=== PATIENT | male | born 1985 | race Caucasian/White ===

== ENCOUNTER 2019-10-11 07:49 | Emergency (ER) | payer OTHER ==
--- NOTE | 2019-10-11 08:05 | EDM.PDOC ---
ED HPI GENERAL MEDICAL PROBLEM - General Chief Complaint: Genitourinary Problem Stated Complaint: SPOKE WITH NURSE Time Seen by Provider: 10/11/19 07:55 Source of Information: Reports: Patient History Limitations: Reports: No Limitations - History of Present Illness Onset: Gradual (yesterday at around 8:00AM with pain in the bottom of his right testicle followed by swelling of the right testicle over the past 8-9 hours.) Duration: Getting Worse Location: Reports: Other (right testicle with pain into the right flank area.) Quality: Reports: Dull, Sharp, Throbbing Severity: Moderate Improves with: Reports: None Worsens with: Reports: None Associated Symptoms: Reports: Other (complains of a white color discharge with the start of his urine flow. He states that the discharge looks like "semen".) right testicle Pain Score (Numeric/FACES): 7 - Related Data Allergies Allergy/AdvReac Type Severity Reaction Status Date / Time tree nut Allergy Severe Airway Verified 10/11/19 08:06 Tightness Home Meds: Home Meds Ibuprofen [Motrin] 800 mg PO BIDMEALS PRN 10 Days #20 tablet 10/11/19 [Rx] Levofloxacin [Levaquin] 500 mg PO DAILY #10 tablet 10/11/19 [Rx] Pantoprazole [ProTONIX] 40 mg PO DAILY 10/11/19 [History] ED ROS GENERAL - Review of Systems Review Of Systems: See Below Constitutional: Reports: No Symptoms HEENT: Reports: No Symptoms Respiratory: Reports: No Symptoms Cardiovascular: Reports: No Symptoms Endocrine: Reports: No Symptoms GI/Abdominal: Reports: No Symptoms : Reports: Discharge (as noted above.), Dysuria, Pain (in right testicle with swelling of same.) Musculoskeletal: Reports: No Symptoms Skin: Reports: No Symptoms Neurological: Reports: No Symptoms ED EXAM, RENAL/ - Physical Exam Exam: See Below Text/Narrative:: This 34 year old male who is very active physically (workout) complains of gradual onset of pain in the bottom of his right testicle that started about 24 hours ago that progressed to a swollen right testicle with increasing pain over the past 10 hours that radiates into his right flank. He complains of semen type discharge from penis when starting his urine stream. He has one active sexual partner and that his last sexual contact was 3 weeks ago. He states that he had a similar problem two to three years ago and was placed he thinks on antibiotics after having a scrotal ultrasound. Exam Limited By: No Limitations General Appearance: Alert, WD/WN, No Apparent Distress Eye Exam: Bilateral Eye: EOMI, Normal Inspection, PERRL Ears: Normal External Exam, Normal Canal, Hearing Grossly Normal, Normal TMs Nose: Normal Inspection, Normal Mucosa, No Blood Throat/Mouth: Normal Inspection, Normal Lips, Normal Teeth, Normal Gums, Normal Oropharynx, Normal Voice, No Airway Compromise Head: Atraumatic, Normocephalic Neck: Normal Inspection, Supple, Non-Tender, Full Range of Motion Respiratory/Chest: No Respiratory Distress, Lungs Clear, Normal Breath Sounds, No Accessory Muscle Use, Chest Non-Tender Cardiovascular: Normal Peripheral Pulses, Regular Rate, Rhythm, No Edema, No Gallop, No JVD, No Murmur, No Rub GI/Abdominal: Normal Bowel Sounds, Soft, Non-Tender, No Organomegaly, No Distention, No Abnormal Bruit, No Mass (Male) Exam: No Hernia, Circumcised, Scrotal Swelling (right testicle especially in the epididymus which is very tender to the touch or with right testicular movement.), Scrotum Tenderness (R) (as noted above), Other (No CVA tenderness.) Rectal (Males) Exam: Deferred Back Exam: Normal Inspection, Full Range of Motion, NT Extremities: Normal Inspection, Normal Range of Motion, Non-Tender, Normal Capillary Refill, No Pedal Edema Neurological: Alert, Oriented, CN II-XII Intact, Normal Cognition, Normal Gait, Normal Reflexes, No Motor/Sensory Deficits Skin Exam: Warm, Dry, Intact, Normal Color, No Rash Lymphatic: No Adenopathy Course - Vital Signs Text/Narrative:: After review of all of the patient diagnostic test including his scrotal ultrasound and his UA, I feel that he has acute epididymitis. He will be placed on Levaquin, scrotal support and warm compress to his scrotal area. The patient agrees with the discharge plan. Last Recorded V/S: Last Vital Signs Temp 95.4 F 10/11/19 08:03 Pulse 109 H 10/11/19 08:03 Resp 18 10/11/19 08:03 BP 140/115 H 10/11/19 08:03 Pulse Ox 95 10/11/19 08:03 - Orders/Labs/Meds Orders: Active Orders 24 hr Category Date Time Status Scrotal Duplex Ltd [US] Stat Exams 10/11/19 Taken CHLAMYDIA AND GONORRHEA BY [facility] Stat Lab 10/11/19 08:00 Received Scrotal Support [OM.PC] Stat Oth 10/11/19 09:31 Ordered Labs: Laboratory Tests 10/11/19 10/11/19 Range/Units 08:00 08:28 WBC 11.56 H (4.0-11.0) K/uL RBC 5.06 (4.50-5.90) M/uL Hgb 15.7 (13.0-17.0) g/dL Hct 45.7 (38.0-50.0) % MCV 90.3 (80.0-98.0) fL MCH 31.0 (27.0-32.0) pg MCHC 34.4 (31.0-37.0) g/dL RDW Std Deviation 43.1 (28.0-62.0) fl RDW Coeff of Elizabeth 13 (11.0-15.0) % Plt Count 238 (150-400) K/uL MPV 10.20 (7.40-12.00) fL Neut % (Auto) 73.2 (48.0-80.0) % Lymph % (Auto) 15.2 L (16.0-40.0) % [place] % (Auto) 8.1 (0.0-15.0) % Eos % (Auto) 3.2 (0.0-7.0) % Baso % (Auto) 0.3 (0.0-1.5) % Neut # (Auto) 8.5 H (1.4-5.7) K/uL Lymph # (Auto) 1.8 (0.6-2.4) K/uL [place] # (Auto) 0.9 H (0.0-0.8) K/uL Eos # (Auto) 0.4 (0.0-0.7) K/uL Baso # (Auto) 0.0 (0.0-0.1) K/uL Nucleated RBC % 0.0 /100WBC Nucleated RBCs # 0 K/uL Urine Color YELLOW Urine Appearance CLOUDY Urine pH 6.5 (5.0-8.0) Ur Specific Humphreys 1.015 (1.001-1.035) Urine Protein 30 H (NEGATIVE) mg/dL Urine Glucose (UA) NEGATIVE (NEGATIVE) mg/dL Urine Ketones NEGATIVE (NEGATIVE) mg/dL Urine Occult Blood MODERATE H (NEGATIVE) Urine Nitrite NEGATIVE (NEGATIVE) Urine Bilirubin SMALL H (NEGATIVE) Urine Ictotest NEGATIVE Urine Urobilinogen 0.2 (<2.0) EU/dL Ur Leukocyte Esterase LARGE H (NEGATIVE) Urine RBC 3-6 (0-2/HPF) Urine WBC 70-80 (0-5/HPF) Ur Epithelial Cells FEW (NONE-FEW) Urine Bacteria 1+ H (NEGATIVE) Meds: Medications Discontinued Medications Generic Name Dose Route Start Last Admin Trade Name Hailey PRN Reason Stop Dose Admin Ibuprofen 800 mg 10/11/19 08:18 10/11/19 08:53 Motrin PO 10/11/19 08:19 800 mg ONETIME ONE Administration Levofloxacin 500 mg 10/11/19 09:31 Levaquin PO 10/11/19 09:32 ONETIME ONE Departure - Departure Time of Disposition: 09:53 Disposition: Home, Self-Care 01 Clinical Impression: Epididymitis - Discharge Information *PRESCRIPTION DRUG MONITORING PROGRAM REVIEWED*: Yes *COPY OF PRESCRIPTION DRUG MONITORING REPORT IN PATIENT LILIAN: Yes Forms: ED Department Discharge Additional Instructions: Take all medications as directed. Follow up with the urologist the nurse has given you in the next two to three days. Drink plenty of clear liquids for the next 24-48 hours. Warm compress to the scrotal area for the next two days (30 minutes on and one hour off while awake). Wear scrotal support for the next four to five days for comfort. Rest for the next 24 hours. Return to the ED if your condition gets worse or should you have any questions or concerns. The following information is given to patients seen in the emergency department who are being discharged to home. This information is to outline your options for follow-up care. We provide all patients seen in our emergency department with a follow-up referral. The need for follow-up, as well as the timing and circumstances, are variable depending upon the specifics of your emergency department visit. If you don't have a primary care physician on staff, we will provide you with a referral. We always advise you to contact your personal physician following an emergency department visit to inform them of the circumstance of the visit and for follow-up with them and/or the need for any referrals to a consulting specialist. The emergency department will also refer you to a specialist when appropriate. This referral assures that you have the opportunity for follow-up care with a specialist. All of these measure are taken in an effort to provide you with optimal care, which includes your follow-up. Under all circumstances we always encourage you to contact your private physician who remains a resource for coordinating your care. When calling for follow-up care, please make the office aware that this follow-up is from your recent emergency room visit. If for any reason you are refused follow-up, please contact the [facility] Emergency Department at and asked to speak to the emergency department charge nurse. Sepsis Event Note - Focused Exam Vital Signs: Vital Signs Temp Pulse Resp BP Pulse Ox 10/11/19 08:03 95.4 F 109 H 18 140/115 H 95 Date Exam was Performed: 10/11/19 Time Exam was Performed: 09:51 - My Orders Last 24 Hours: My Active Orders 10/11/19 Scrotal Duplex Ltd [US] Stat 10/11/19 08:00 CHLAMYDIA AND GONORRHEA BY [facility] Stat 10/11/19 09:31 Scrotal Support [OM.PC] Stat - Assessment/Plan Last 24 Hours: My Active Orders 10/11/19 Scrotal Duplex Ltd [US] Stat 10/11/19 08:00 CHLAMYDIA AND GONORRHEA BY [facility] Stat 10/11/19 09:31 Scrotal Support [OM.PC] Stat
[2019-10-11] MEDS ORDERED: Ibuprofen 800 MG Tab PO ONE (08:18)
--- NOTE | 2019-10-11 09:05 | US ---
Testicular ultrasound: Multiple real-time images of the testicles were obtained. Comparison: No previous testicular imaging is available. Findings: Right scrotal wall appears thickened. Both testicles have a homogeneous ultrasound appearance. No intratesticular abnormality is appreciated. Both venous and arterial blood flow are seen within the testicles. No hydrocele is seen. No epididymal cyst is identified. No varicocele is identified. Measurements: Right testicle: 4.2 x 2.6 x 3.3 cm Left testicle: 4.7 x 2.1 x 2.9 cm Impression: 1. Scrotal wall thickening on the right side. 2. No intratesticular abnormality is seen as described above. Diagnostic code #2 This report was dictated in [place] Standard Time
[2019-10-11] MEDS ORDERED: Levofloxacin 500 MG Tab PO ONE (09:31)
--- NOTE | 2019-10-11 12:52 | US ---
EXAM DATE: 10/11/19 PATIENT'S AGE: 34 Testicular ultrasound: Multiple real-time images of the testicles were obtained. Comparison: No previous testicular imaging is available. Findings: Right scrotal wall appears thickened. Both testicles have a homogeneous ultrasound appearance. No intratesticular abnormality is appreciated. Both venous and arterial blood flow are seen within the testicles. No hydrocele is seen. No epididymal cyst is identified. No varicocele is identified. Measurements: Right testicle: 4.2 x 2.6 x 3.3 cm Left testicle: 4.7 x 2.1 x 2.9 cm Impression: 1. Scrotal wall thickening on the right side. 2. No intratesticular abnormality is seen as described above. Diagnostic code #2 This report was dictated in [place] Standard Time Report Signed by Proxy. [facility]
== END 2019-10-11 10:15 | disposition home or self-care (01) ==
LOC: MW.ED 07:49
DX: N45.1 Epididymitis (principal); Z91.018 Allergy to other foods; Z79.899 Other long term (current) drug therapy
CPT/HCPCS: 36415; 76870; 81001; 85025; 87491; 87591; 93976; 99284; A9270